=== PATIENT | female | born 1945 | race African-American/Black ===

== ENCOUNTER → 2018-08-31 | Outpatient (CLI) | payer MEDICARE ==
--- NOTE | 2018-08-31 13:53 | PCVCIMAG ---
EXAM: BILATERAL LOWER EXTREMITY ARTERIAL DUPLEX INDICATION: Peripheral Arterial Disease. Leg pain. Left lateral ankle nonhealing ulcer. FINDINGS: Right Leg: Common femoral and profunda femoral arteries are patent. Increased systolic velocity 356 cm/s mid grindstone superficial femoral artery consistent with 80-90% stenosis. The popliteal artery is patent. Anterior tibial, peroneal, and posterior tibial arteries are patent. Left Leg: Common femoral and profunda femoral arteries are patent. Subtotal segmental occlusion distal grindstone superficial femoral artery. Popliteal artery is patent. The anterior tibial and peroneal arteries are patent. Occlusion of the distal posterior tibial artery. IMPRESSION: 80-90% stenosis mid grindstone right superficial femoral artery. Segmental subtotal occlusion distal grindstone left superficial femoral artery. Occlusion distal left posterior tibial artery. Results reviewed with Dr. Arevalo. LOC:[id number]
== END | disposition home or self-care (01) ==
LOC: PCVCIMAG 11:02
PROVIDERS: ATTEND Emergency Medicine
DX: I73.9 Peripheral vascular disease, unspecified (principal); S81.802A Unspecified open wound, left lower leg, initial encounter; X58.XXXA Exposure to other specified factors, initial encounter; Y93.89 Activity, other specified; Y92.89 Other specified places as the place of occurrence of the external cause; Y99.8 Other external cause status
CPT/HCPCS: 93925

== ENCOUNTER → 2018-09-09 | Outpatient (CLI) | payer MEDICARE ==
[~2018-09-09] MED LIST: EPTIFIBATIDE BOLUS 2,000 MCG/ML 10ML VIAL. IV ONE; HEPARIN for SUB-Q USE 5,000 UNIT/ML VIAL. SQ ONE; IODIXANOL 270 MG/ML 100 ML VIAL. ONE; IV NORMAL SALINE 500ML BAG 500 ML ONE; LIDOCAINE 1%/EPI 1:100,000 20 ML VIAL. ONE; MIDAZOLAM HCL/PF 2 MG/2 ML VIAL. ONE; diazePAM 5 MG TABLET ONE; fentaNYL PF VIAL 100 MCG/2 ML VIAL ONE; hydrALAZINE 20 MG/ML VIAL. ONE
--- NOTE | 2018-09-09 17:18 | PCVCINTER ---
EXAM: 1. AORTOGRAM AND BILATERAL LOWER EXTREMITY RUNOFF ANGIOGRAM 2. BILATERAL RENAL ANGIOGRAPHY 3. LEFT SUPERFICIAL FEMORAL ARTERY ATHERECTOMY AND STENT PLACEMENT. 4. SECONDARY THROMBECTOMY LEFT SUPERFICIAL FEMORAL ARTERY. INDICATION: Peripheral arterial disease. Nonhealing ulcer left lower extremity. Hypertension. Renal atherosclerosis. No prior catheter based angiographic study is available. A full diagnostic angiogram study is performed today and the decision to intervene is based on this diagnostic study. PROCEDURE: Procedure and risks of angiography intervention is appropriate including limb loss stroke and were discussed with the patient's family and consent obtained. The patient's right groin was prepped in the normal sterile fashion. IV conscious sedation was used throughout procedure with appropriate monitoring from 12:00 PM through 1:15 PM. Ultrasound was used to interrogate the right groin and showed the right common femoral artery to be patent. A permanent spot film was obtained. Under ultrasound guidance access into the right common femoral artery was obtained and a 5 Lao sheath was placed. Through this a 5 Lao flush catheter was placed into the abdominal aorta at the level of the renal arteries and AP aortogram was performed. Catheter was positioned at the aortic bifurcation and both oblique views of the pelvis were obtained. Catheter was positioned into the right external iliac artery and right leg runoff angiography was performed. Catheter was exchanged for a visceral catheter was placed into the right renal arteries and right renal angiograms obtained. Catheter was placed into the the left renal arteries and left renal angiograms were obtained. Catheter was advanced to the level of the left external iliac artery and left leg runoff angiography was obtained. Patient was given 4500 units of heparin. A 6 Lao crossover sheath was placed via the right groin to the level of the left common femoral artery. Atherectomy of the left superficial femoral artery was performed with 2.0 mm [employer] laser atherectomy catheter in the standard fashion. Following atherectomy small areas of thrombus were observed and because of this secondary thrombectomy throughout the left superficial femoral artery was carried out with mechanical suction thrombectomy catheter in the standard fashion. Minimal debris was removed. Stent placement across the areas of high-grade stenosis in the left distal superficial femoral artery was carried out with a 8 x 40 Smart control stent with subsequent dilatation to 6.0 mm. Stent placement across the areas of high-grade stenosis in the left mid superficial femoral artery was carried out with a 6 x 100 Smart control stent with subsequent dilatation to 6.0 mm. Follow-up angiogram was performed. Catheters and wires removed. Sheath was removed and hemostasis obtained using the FISH device. No immediate complications. FINDINGS: Aortogram: There is one right and one left renal artery. Ectasia infrarenal abdominal aorta with moderate atheromatous change without significant stenosis. Pelvis: Mild ectasia right and left common iliac arteries without significant stenosis. Both internal iliac arteries are patent. The right and left external iliac arteries are patent. The right and left common femoral and profunda femoral arteries are patent. Right renal artery: Mild plaque proximal vessel does not cause significant stenosis. Left renal artery: Mild plaque proximal vessel does not cause significant stenosis. Right le% stenosis mid superficial femoral artery distal superficial femoral artery shows good patency as does the popliteal artery. Three-vessel runoff into the foot. Left leg: Moderate stenosis due to calcific plaque mid grindstone superficial femoral artery with 80% stenosis at the junction of the superficial femoral artery and popliteal artery. Popliteal artery is otherwise patent. The anterior and posterior tibial arteries are occluded throughout their length. The peroneal artery is large in size showing good patency to refill moderate-sized dorsalis pedis and plantar arteries. Left superficial femoral artery: Following procedure as above vessel shows good patency. IMPRESSION: Left mid and distal superficial femoral artery stenosis were treated as above with good patency restored. Single left peroneal artery runoff. 80% stenosis mid right superficial femoral artery. Patient will return next week for correction of this. LOC:[id number]
== END | disposition home or self-care (01) ==
LOC: PCVCIMAG 13:07
PROVIDERS: ATTEND Nuclear Medicine Nuclear Cardiology
DX: I70.248 Atherosclerosis of native arteries of left leg with ulceration of other part of lower leg (principal); L97.828 Non-pressure chronic ulcer of other part of left lower leg with other specified severity; I70.1 Atherosclerosis of renal artery; I70.291 Other atherosclerosis of native arteries of extremities, right leg; I77.811 Abdominal aortic ectasia; I12.9 Hypertensive chronic kidney disease with stage 1 through stage 4 chronic kidney disease, or unspecified chronic kidney disease; E11.22 Type 2 diabetes mellitus with diabetic chronic kidney disease; N18.9 Chronic kidney disease, unspecified; E78.5 Hyperlipidemia, unspecified; I25.2 Old myocardial infarction; E66.9 Obesity, unspecified; G47.33 Obstructive sleep apnea (adult) (pediatric); Z90.13 Acquired absence of bilateral breasts and nipples; Z98.890 Other specified postprocedural states; Z87.891 Personal history of nicotine dependence; Z72.89 Other problems related to lifestyle; Z88.8 Allergy status to other drugs, medicaments and biological substances; Z79.82 Long term (current) use of aspirin; Z79.899 Other long term (current) drug therapy; J44.9 Chronic obstructive pulmonary disease, unspecified; Z79.84 Long term (current) use of oral hypoglycemic drugs
CPT/HCPCS: 36252; 37186; 37227; 75716; 76937; 99152; 99153; C1725; C1751; C1757; C1760; C1769; C1876; C1885; C1894; J0690; J1327; J1644; J2250; J3010; J3490; J7040; Q9967; J0360

== ENCOUNTER → 2018-09-14 | Outpatient (CLI) | payer MEDICARE ==
[~2018-09-14] MED LIST changes: +DIAZEPAM 10 MG TABLET. ONE; +IV NORMAL SALINE 1000ML BAG 1,000 ML ONE; -IV NORMAL SALINE 500ML BAG 500 ML ONE; -diazePAM 5 MG TABLET ONE
--- NOTE | 2018-09-14 17:31 | PCVCINTER ---
EXAM: 1. RIGHT SUPERFICIAL FEMORAL ARTERY ATHERECTOMY AND STENT PLACEMENT. 2. SECONDARY THROMBECTOMY RIGHT SUPERFICIAL FEMORAL ARTERY. 3. DRUG COATED BALLOON ANGIOPLASTY RIGHT SUPERFICIAL FEMORAL ARTERY. INDICATION: Peripheral arterial disease. Leg pain. Hypertension. Renal atherosclerosis. PROCEDURE: Procedure and risks of angiography intervention is appropriate including limb loss stroke and were discussed with the patient's family and consent obtained. The patient's left groin was prepped in the normal sterile fashion. IV conscious sedation was used throughout procedure with appropriate monitoring from 10:15 AM through 11:30 AM. Ultrasound was used to interrogate the left groin and showed the left common femoral artery to be patent. A permanent spot film was obtained. Under ultrasound guidance access into the left common femoral artery was obtained and a 6 Yi crossover sheath was placed via the left groin to the level of the right common femoral artery. Atherectomy of the right superficial femoral artery was performed with 2.0 mm [employer] laser atherectomy catheter in the standard fashion. Following atherectomy small areas of thrombus were observed and because of this secondary thrombectomy throughout the right superficial femoral artery was carried out with mechanical suction thrombectomy catheter in the standard fashion. Minimal debris was removed. Stent placement across the areas of high-grade stenosis in the right superficial femoral artery was carried out with a 8 x 120 Smart control stent with subsequent dilatation to 6.0 mm. Following this drug coated balloon angioplasty of the right superficial femoral artery was carried out with a 6 x 120 and 6 x 40 [employer] Shanna José [employer] catheters. Follow-up angiogram was performed. Catheters and wires removed. Sheath was removed and hemostasis obtained using the FISH device. No immediate complications. FINDINGS: Right superficial femoral artery: Following procedure as above vessel shows good patency. IMPRESSION: High-grade stenoses mid/distal superficial femoral artery was treated as above with good patency restored. LOC:[id number]
== END | disposition home or self-care (01) ==
LOC: PCVCINTER 12:06
PROVIDERS: ATTEND Nuclear Medicine Nuclear Cardiology
DX: I70.221 Atherosclerosis of native arteries of extremities with rest pain, right leg (principal); I70.1 Atherosclerosis of renal artery; I12.0 Hypertensive chronic kidney disease with stage 5 chronic kidney disease or end stage renal disease; E11.22 Type 2 diabetes mellitus with diabetic chronic kidney disease; N18.4 Chronic kidney disease, stage 4 (severe); E78.5 Hyperlipidemia, unspecified; I25.2 Old myocardial infarction; E66.9 Obesity, unspecified; J44.9 Chronic obstructive pulmonary disease, unspecified; G47.33 Obstructive sleep apnea (adult) (pediatric); I25.10 Atherosclerotic heart disease of native coronary artery without angina pectoris; E78.00 Pure hypercholesterolemia, unspecified; R09.02 Hypoxemia; Z88.6 Allergy status to analgesic agent; Z98.890 Other specified postprocedural states; Z79.82 Long term (current) use of aspirin; Z79.899 Other long term (current) drug therapy; Z87.891 Personal history of nicotine dependence; Z68.42 Body mass index [BMI] 45.0-49.9, adult
CPT/HCPCS: 37186; 37227; 76937; C1725; C1751; C1757; C1760; C1769; C1876; C1885; C1894; C2623; J0360; J0690; J1327; J1644; J2250; J3010; J3490; J7030; Q9967; 99152; 99153

== ENCOUNTER → 2019-01-06 | Outpatient (CLI) | payer OTHER ==
--- NOTE | 2019-01-06 08:47 | PCVCIMAG ---
EXAM: BILATERAL CAROTID DUPLEX INDICATION: Carotid Occlusive Disease. FINDINGS: Doppler Measurements (centimeters per second): RIGHT: Peak CCA-89, Peak ECA-144, Diastolic ICA-27, Peak ICA-122, ICA/CCA Ratio-1.4. LEFT: Peak CCA-114, Peak ECA-110, Diastolic ICA-31, Peak ICA-148, ICA/CCA Ratio-1.3. RIGHT CAROTID: The carotid bulb has moderate plaque. The proximal internal carotid artery shows <40% stenosis. The common carotid artery shows no significant stenosis. The external carotid artery shows 40% stenosis. LEFT CAROTID: The carotid bulb has moderate plaque. The proximal internal carotid artery shows 40-50% stenosis. The common carotid artery shows no significant stenosis. The external carotid artery shows no significant stenosis. Antegrade flow in both vertebral arteries. IMPRESSION: <40% stenosis of the right internal carotid artery with moderate plaque. 40-50% stenosis of the left internal carotid artery with moderate plaque. LOC:[place] [id number]
--- NOTE | 2019-01-06 10:00 | PCVCIMAG ---
EXAM: BILATERAL LOWER EXTREMITY ARTERIAL DUPLEX INDICATION: Peripheral Arterial Disease. Leg pain. FINDINGS: Right Leg: Common femoral and profunda femoral arteries are patent. Mild stenosis proximal/mid superficial femoral artery not felt be flow-limiting. Previous stent maintaining satisfactory patency. Popliteal artery is patent. The anterior tibial, peroneal, and posterior tibial arteries are patent. Left Leg: Common femoral profunda femoral arteries are patent. Superficial femoral artery and popliteal artery maintaining satisfactory patency. Previous superficial femoral artery stent remains patent. Reasonable arterial waveforms throughout the anterior tibial, peroneal, and posterior tibial arteries without obvious high-grade stenosis. IMPRESSION: Mild stenosis proximal/mid right superficial femoral artery. Previous right superficial femoral artery stent maintaining satisfactory patency. No flow limiting stenosis in the left lower extremity. Previous left superficial femoral artery stent maintaining satisfactory patency. LOC:[id number]
== END | disposition home or self-care (01) ==
LOC: PCVCIMAG 07:30
PROVIDERS: ATTEND Nuclear Medicine Nuclear Cardiology
DX: I65.23 Occlusion and stenosis of bilateral carotid arteries (principal); I73.9 Peripheral vascular disease, unspecified
CPT/HCPCS: 93880; 93925

== ENCOUNTER → 2019-07-19 | Outpatient (CLI) | payer OTHER ==
--- NOTE | 2019-07-19 14:48 | PCVCIMAG ---
EXAM: BILATERAL LOWER EXTREMITY ARTERIAL DUPLEX INDICATION: Peripheral Arterial Disease. Leg pain. FINDINGS: Right Leg: Common femoral and profunda femoral arteries are patent. 40-50% stenosis proximal [place] superficial femoral artery not felt be critically flow-limiting. Previous stent mid/distal superficial femoral artery is patent. Popliteal artery is patent. The anterior tibial, peroneal, and posterior tibial arteries are patent. Left Leg: Common femoral and profunda femoral arteries are patent. Superficial femoral artery are patent. Previous superficial femoral artery stent. Anterior tibial, peroneal, and posterior tibial arteries are patent. Mild stenosis tibioperoneal trunk. IMPRESSION: 40-50% stenosis proximal [place] right superficial femoral artery. Previous right superficial femoral artery stent is patent. Previous left superficial femoral artery stent is patent. LOC:[id number]
== END | disposition home or self-care (01) ==
LOC: PCVCIMAG 10:51
PROVIDERS: ATTEND Nuclear Medicine Nuclear Cardiology
DX: I73.9 Peripheral vascular disease, unspecified (principal); E11.9 Type 2 diabetes mellitus without complications; E78.5 Hyperlipidemia, unspecified; I10 Essential (primary) hypertension; Z87.891 Personal history of nicotine dependence
CPT/HCPCS: 93925